=== PATIENT | female | born 1940 | race African-American/Black ===

== ENCOUNTER 2017-04-29 17:05 | Inpatient (IN) | payer OTHER, MEDICAID ==
[~2017-04-29] VITALS: Ht 167.6 cm; Wt 77.1 kg
[~2017-04-29 17:05] MED LIST: FURO-152; LINA5TAB PO; METF500T3 PO; NIFE60TA64 PO; RAMI10CA19 PO; SIMV40TA5 PO; TRIA1TAB5 PO
[2017-04-29 18:23] LABS: CLARITY URINE TURBID (CLEAR); COLOR URINE DARK YELLOW (YELLOW); GLUCOSE URINE 2+ (NEGATIVE); KETONES URINE 1+ (NEGATIVE); LEUKOCYTE ESTERASE URINE 3+ (NEGATIVE); NITRITE URINE NEGATIVE (NEGATIVE); OCCULT BLOOD URINE 2+ (NEGATIVE); PH URINE 5.5 (4.5-8.0); PROTEIN URINE 3+ (NEGATIVE); SPECIFIC GRAVITY URINE 1.024 (1.005-1.030)
[2017-04-29 18:28] LABS: BASOPHILS % 0.9 % (0.0-2.0); EOSINOPHILS % 0.3 % (0.0-5.0); HEMATOCRIT. 38.7 % (36.0-48.0); HEMOGLOBIN. 12.7 g/dL (12.0-16.0); LYMPHOCYTES % 23.9 % (20.0-50.0); MEAN CORPUSCULAR HEMOGLOBIN 25.9 pg (28.0-32.0); MEAN CORPUSCULAR VOLUME 78.7 fL (81.0-99.0); MEAN PLATELET VOLUME 8.7 fl (7.4-10.4); MONOCYTES % 9.9 % (2.0-8.0); PLATELET 298 x1000/uL (130-400); RED BLOOD CELL COUNT 4.91 mill/uL (4.2-5.4); RED CELL DISTRIBUTION WIDTH 15.4 % (11.6-14.6)
[2017-04-29 18:41] LABS: CARBON DIOXIDE 29 mEq/L (21-32); CHLORIDE 100 mEq/L (98-107)
[2017-04-29] MEDS ORDERED: LEVOFLOXACIN 500MG PREMIX 100 ML IV ONE (19:45)
[2017-04-29] MEDS ORDERED: LORAZEPAM 2MG/ML CPJ IV ONE (21:15)
[2017-04-29] MEDS ORDERED: LABETALOL HCL 20MG/4ML CARPUJECT IV PRN (21:15)
[2017-04-29] MEDS ORDERED: LABETALOL 5MG/ML SYR 20 MG/4 ML SYRINGE IV PRN (22:30)
[2017-04-30] MEDS ORDERED: ACETAMINOPHEN 325MG TABLET PO PRN
[2017-04-30] MEDS ORDERED: LORAZEPAM 0.5MG TABLET PO PRN
[2017-04-30] MEDS ORDERED: ONDANSETRON HCL 4MG/2ML VIAL IV PRN
[2017-04-30] MEDS ORDERED: CLONIDINE 0.1MG TABLET PO PRN
[2017-04-30] MEDS ORDERED: DOCUSATE SODIUM 100MG CAPSULE PO PRN
[2017-04-30] MEDS ORDERED: ENOXAPARIN 40MG/0.4ML SYR SUBCUT NR (05:06)
[2017-04-30] MEDS ORDERED: LEVOFLOXACIN 500MG PREMIX 100 ML IV NR (05:08)
[2017-04-30] MEDS ORDERED: MVI, ADULT NO.1 10 ML, FOLIC ACID 1 MG, THIAMINE HCL 100 MG in SODIUM CHLORIDE 0.9% 1,0... IV SCH ×4 (05:30)
[2017-04-30] MEDS: TRIAMTERENE/HYDROCHLOROTHIAZID 75/50MG TABLET PO SCH (12:08)
[2017-04-30] MEDS: LOSARTAN POTASSIUM 100 MG TABLET PO SCH (12:08)
[2017-04-30] MEDS: NIFEDIPINE XL 60MG TAB PO SCH (12:09)
[2017-04-30] MEDS: LINAGLIPTIN 5MG TABLET PO SCH (12:09)
[2017-04-30] MEDS ORDERED: POTASSIUM CHLORIDE 20MEQ TABLET SR PO NR (14:15)
[2017-04-30 17:25] VITALS: BP 130/78
[2017-04-30 17:36] VITALS: BP 130/78
[2017-04-30] MEDS ORDERED: DEXTROSE 50% WATER 50ML SYRINGE IV PRN (18:00)
[2017-04-30 20:00] VITALS: BP 138/81
[2017-04-30] MEDS: ATORVASTATIN CALCIUM 40MG TABLET PO SCH (21:00)
[2017-04-30] MEDS: INSULIN LISPRO 100 UNITS/ML SUBCUT SCH (21:00)
[2017-04-30] MEDS: BLOOD SUGAR DIAGNOSTIC STRIP TEST SCH (21:00)
[2017-05-01] VITALS: BP 166/86
[2017-05-01 04:00] VITALS: BP 102/60
[2017-05-01] MEDS ORDERED: LEVOFLOXACIN 500MG PREMIX 100 ML IV SCH ×2 (05:00→05:08)
[2017-05-01] MEDS: BLOOD SUGAR DIAGNOSTIC STRIP TEST SCH ×4 (06:14→21:30)
[2017-05-01] MEDS: INSULIN LISPRO 100 UNITS/ML SUBCUT SCH ×4 (06:18→21:30)
[2017-05-01 08:00] VITALS: BP 135/67
[2017-05-01] MEDS ORDERED: POTASSIUM CHLORIDE 20MEQ TABLET SR PO SCH (09:00)
[2017-05-01] MEDS: ENOXAPARIN 40MG/0.4ML SYR SUBCUT SCH ×2 (09:00→09:51)
[2017-05-01] MEDS ORDERED: ENOXAPARIN 40MG/0.4ML SYR SUBCUT SCH (09:00)
[2017-05-01] MEDS: POTASSIUM CHLORIDE 20MEQ TABLET SR PO SCH (09:07)
[2017-05-01] MEDS: TRIAMTERENE/HYDROCHLOROTHIAZID 75/50MG TABLET PO SCH (09:08)
[2017-05-01] MEDS: LOSARTAN POTASSIUM 100 MG TABLET PO SCH (09:08)
[2017-05-01] MEDS: LINAGLIPTIN 5MG TABLET PO SCH (09:08)
[2017-05-01] MEDS: NIFEDIPINE XL 60MG TAB PO SCH (09:08)
[2017-05-01 12:00] VITALS: BP 139/76
[2017-05-01 16:00] VITALS: BP 134/75
[2017-05-01 20:00] VITALS: BP 137/71
[2017-05-01] MEDS: ATORVASTATIN CALCIUM 40MG TABLET PO SCH (21:30)
[2017-05-02] VITALS: BP 121/73
[2017-05-02 04:00] VITALS: BP 139/72
[2017-05-02] MEDS: BLOOD SUGAR DIAGNOSTIC STRIP TEST SCH ×4 (07:07→21:45)
[2017-05-02] MEDS: INSULIN LISPRO 100 UNITS/ML SUBCUT SCH ×4 (07:07→21:00)
[2017-05-02] MEDS: NIFEDIPINE XL 60MG TAB PO SCH (09:00)
[2017-05-02] MEDS ORDERED: LEVOFLOXACIN 500MG PREMIX 100 ML IV SCH (09:00)
[2017-05-02] MEDS: LINAGLIPTIN 5MG TABLET PO SCH (09:00)
[2017-05-02] MEDS: POTASSIUM CHLORIDE 20MEQ TABLET SR PO SCH (09:00)
[2017-05-02] MEDS: TRIAMTERENE/HYDROCHLOROTHIAZID 75/50MG TABLET PO SCH (09:00)
[2017-05-02] MEDS: LOSARTAN POTASSIUM 100 MG TABLET PO SCH (09:00)
[2017-05-02] MEDS: ENOXAPARIN 40MG/0.4ML SYR SUBCUT SCH (09:00)
[2017-05-02 09:31] VITALS: BP 129/76
[2017-05-02 12:08] VITALS: BP 112/79
[2017-05-02] MEDS: LEVOFLOXACIN 500MG TABLET PO SCH (12:30)
[2017-05-02 15:47] VITALS: BP 119/66
[2017-05-02 20:00] VITALS: BP 125/68
[2017-05-02] MEDS: ATORVASTATIN CALCIUM 40MG TABLET PO SCH (21:00)
[2017-05-02] MEDS: MIRTAZAPINE 15MG TABLET PO SCH (21:00)
[2017-05-03] VITALS: BP 154/82
[2017-05-03] MEDS: INSULIN LISPRO 100 UNITS/ML SUBCUT SCH ×3 (06:31→17:40)
[2017-05-03] MEDS: BLOOD SUGAR DIAGNOSTIC STRIP TEST SCH ×4 (06:31→21:00)
[2017-05-03 08:00] VITALS: BP 108/65
[2017-05-03] MEDS: NIFEDIPINE XL 60MG TAB PO SCH (09:00)
[2017-05-03] MEDS: LOSARTAN POTASSIUM 100 MG TABLET PO SCH (09:00)
[2017-05-03] MEDS: LINAGLIPTIN 5MG TABLET PO SCH (09:00)
[2017-05-03] MEDS: TRIAMTERENE/HYDROCHLOROTHIAZID 75/50MG TABLET PO SCH (09:00)
[2017-05-03] MEDS: POTASSIUM CHLORIDE 20MEQ TABLET SR PO SCH (09:00)
[2017-05-03] MEDS: ENOXAPARIN 40MG/0.4ML SYR SUBCUT SCH (09:00)
[2017-05-03 12:00] VITALS: BP 110/64
[2017-05-03] MEDS ORDERED: LEVOFLOXACIN 500MG TABLET PO SCH (12:00)
[2017-05-03 16:00] VITALS: BP 114/68
[2017-05-03 20:00] VITALS: BP 129/91
[2017-05-03] MEDS: MIRTAZAPINE 15MG TABLET PO SCH (22:46)
[2017-05-03] MEDS: ATORVASTATIN CALCIUM 40MG TABLET PO SCH (22:46)
[2017-05-04 08:00] VITALS: BP 133/68
[2017-05-04] MEDS: ENOXAPARIN 40MG/0.4ML SYR SUBCUT SCH (09:16)
[2017-05-04] MEDS: TRIAMTERENE/HYDROCHLOROTHIAZID 75/50MG TABLET PO SCH (09:17)
[2017-05-04] MEDS: LINAGLIPTIN 5MG TABLET PO SCH (09:18)
[2017-05-04] MEDS: LOSARTAN POTASSIUM 100 MG TABLET PO SCH (09:18)
[2017-05-04] MEDS: POTASSIUM CHLORIDE 20MEQ TABLET SR PO SCH (09:18)
[2017-05-04] MEDS: NIFEDIPINE XL 60MG TAB PO SCH (09:18)
[2017-05-04 12:00] VITALS: BP 128/69
[2017-05-04] MEDS: BLOOD SUGAR DIAGNOSTIC STRIP TEST SCH ×2 (12:10→21:00)
[2017-05-04] MEDS: LEVOFLOXACIN 500MG TABLET PO SCH (12:30)
[2017-05-04] MEDS: INSULIN LISPRO 100 UNITS/ML SUBCUT SCH ×2 (12:40→21:00)
[2017-05-04 16:00] VITALS: BP 116/73
[2017-05-04] MEDS: ATORVASTATIN CALCIUM 40MG TABLET PO SCH (21:00)
[2017-05-04] MEDS: MIRTAZAPINE 15MG TABLET PO SCH (21:00)
[2017-05-05 04:00] VITALS: BP 144/80
[2017-05-05] MEDS: INSULIN LISPRO 100 UNITS/ML SUBCUT SCH ×4 (06:07→21:00)
[2017-05-05] MEDS: BLOOD SUGAR DIAGNOSTIC STRIP TEST SCH ×5 (06:07→21:45)
[2017-05-05] MEDS: POTASSIUM CHLORIDE 20MEQ TABLET SR PO SCH (09:00)
[2017-05-05] MEDS: LINAGLIPTIN 5MG TABLET PO SCH (09:00)
[2017-05-05] MEDS: LOSARTAN POTASSIUM 100 MG TABLET PO SCH (09:00)
[2017-05-05] MEDS: ENOXAPARIN 40MG/0.4ML SYR SUBCUT SCH (09:00)
[2017-05-05] MEDS: TRIAMTERENE/HYDROCHLOROTHIAZID 75/50MG TABLET PO SCH (09:00)
[2017-05-05] MEDS: NIFEDIPINE XL 60MG TAB PO SCH (09:00)
[2017-05-05 09:06] VITALS: BP 133/67
[2017-05-05] MEDS: ATORVASTATIN CALCIUM 40MG TABLET PO SCH (21:00)
[2017-05-05] MEDS: MIRTAZAPINE 15MG TABLET PO SCH (21:00)
[2017-05-06 08:00] VITALS: BP 102/77
[2017-05-06] MEDS: NIFEDIPINE XL 60MG TAB PO SCH (08:11)
[2017-05-06] MEDS: LOSARTAN POTASSIUM 100 MG TABLET PO SCH (08:11)
[2017-05-06] MEDS: INSULIN LISPRO 100 UNITS/ML SUBCUT SCH ×4 (08:14→21:00)
[2017-05-06] MEDS: LINAGLIPTIN 5MG TABLET PO SCH (08:38)
[2017-05-06] MEDS: ENOXAPARIN 40MG/0.4ML SYR SUBCUT SCH (08:38)
[2017-05-06] MEDS: POTASSIUM CHLORIDE 20MEQ TABLET SR PO SCH (08:38)
[2017-05-06] MEDS: TRIAMTERENE/HYDROCHLOROTHIAZID 75/50MG TABLET PO SCH (08:38)
[2017-05-06] MEDS: BLOOD SUGAR DIAGNOSTIC STRIP TEST SCH ×3 (11:37→21:50)
[2017-05-06 12:00] VITALS: BP 98/50
[2017-05-06] MEDS: LEVOFLOXACIN 500MG TABLET PO SCH (12:57)
[2017-05-06 16:00] VITALS: BP 151/86
[2017-05-06 20:00] VITALS: BP 103/60
[2017-05-06] MEDS: MIRTAZAPINE 15MG TABLET PO SCH (21:50)
[2017-05-06] MEDS: ATORVASTATIN CALCIUM 40MG TABLET PO SCH (21:50)
[2017-05-07 04:00] VITALS: BP 117/71
[2017-05-07] MEDS: BLOOD SUGAR DIAGNOSTIC STRIP TEST SCH ×4 (06:41→20:34)
[2017-05-07] MEDS: INSULIN LISPRO 100 UNITS/ML SUBCUT SCH ×4 (06:41→20:33)
[2017-05-07 08:00] VITALS: BP 139/76
[2017-05-07] MEDS: POTASSIUM CHLORIDE 20MEQ TABLET SR PO SCH (08:25)
[2017-05-07] MEDS: LOSARTAN POTASSIUM 100 MG TABLET PO SCH (08:25)
[2017-05-07] MEDS: TRIAMTERENE/HYDROCHLOROTHIAZID 75/50MG TABLET PO SCH (08:26)
[2017-05-07] MEDS: NIFEDIPINE XL 60MG TAB PO SCH (08:26)
[2017-05-07] MEDS: ENOXAPARIN 40MG/0.4ML SYR SUBCUT SCH (08:26)
[2017-05-07] MEDS: LINAGLIPTIN 5MG TABLET PO SCH (08:26)
[2017-05-07 12:00] VITALS: BP 136/76
[2017-05-07 17:48] VITALS: BP 136/76
[2017-05-07 19:53] VITALS: BP 145/74
[2017-05-07] MEDS: MIRTAZAPINE 15MG TABLET PO SCH (20:34)
[2017-05-07] MEDS: ATORVASTATIN CALCIUM 40MG TABLET PO SCH (20:34)
== END 2017-05-07 23:24 | disposition home or self-care (01) | DRG 689 ==
LOC: ER 17:57 → ENRESERV 04-30 16:25 → ER 04-30 16:57 → 8WST 04-30 17:35
PROVIDERS: ADMIT Internal Medicine; ATTEND Internal Medicine
DX: N39.0 Urinary tract infection, site not specified (principal); G93.41 Metabolic encephalopathy; I67.82 Cerebral ischemia; E44.1 Mild protein-calorie malnutrition; E87.6 Hypokalemia; F03.90 Unspecified dementia, unspecified severity, without behavioral disturbance, psychotic disturbance, mood disturbance, and anxiety; E11.319 Type 2 diabetes mellitus with unspecified diabetic retinopathy without macular edema; I10 Essential (primary) hypertension; E78.5 Hyperlipidemia, unspecified; F22 Delusional disorders; F41.9 Anxiety disorder, unspecified; Z88.0 Allergy status to penicillin; Z79.84 Long term (current) use of oral hypoglycemic drugs; Z79.899 Other long term (current) drug therapy; Z91.14 Patient's other noncompliance with medication regimen; Z90.710 Acquired absence of both cervix and uterus; Z68.27 Body mass index [BMI] 27.0-27.9, adult
CPT/HCPCS: 36415; 74176; 80048; 81001; 82040; 82962; 85025; 87040; 87086; 87186; 96365; 96366; 96368; 96372; 96375; 97162; 97166; 99285; A6261; J1650; J1815; J1956; J2060; J3411; J3490; J7030; J7050

== ENCOUNTER 2017-05-11 16:33 | Emergency (ER) | payer OTHER, MEDICAID ==
[~2017-05-11] VITALS: Ht 167.6 cm; Wt 87.0 kg
[~2017-05-11 16:33] MED LIST changes: -FURO-152
[2017-05-11] MEDS ORDERED: CLONIDINE 0.1MG TABLET PO ONE (17:15)
[2017-05-11] MEDS ORDERED: LORAZEPAM 1MG TABLET PO ONE (17:15)
[2017-05-11 17:55] LABS: BASOPHILS % 1.2 % (0.0-2.0); EOSINOPHILS % 0.6 % (0.0-5.0); HEMOGLOBIN. 12.2 g/dL (12.0-16.0); LYMPHOCYTES % 31.5 % (20.0-50.0); MEAN CORPUSCULAR HEMOGLOBIN 26.1 pg (28.0-32.0); MEAN PLATELET VOLUME 9.1 fl (7.4-10.4); MONOCYTES % 8.1 % (2.0-8.0); NEUTROPHILS % 58.6 % (40.0-76.0); PLATELET 228 x1000/uL (130-400); RED BLOOD CELL COUNT 4.69 mill/uL (4.2-5.4); RED CELL DISTRIBUTION WIDTH 15.9 % (11.6-14.6)
[2017-05-11 17:56] LABS: D-DIMER 3.45 mg/L FEU (<0.50); PROTHROMBIN TIME 10.6 sec
[2017-05-11 17:57] LABS: CARBON DIOXIDE 27 mEq/L (21-32); CHLORIDE 102 mEq/L (98-107)
[2017-05-11 18:05] LABS: CREATINE KINASE 97 IU/L (26-192); ETHANOL BLOOD < 10 mg/dL; TROPONIN I 0.18 ng/mL (0.00-0.04)
[2017-05-11 18:26] LABS: CLARITY URINE CLEAR (CLEAR); COLOR URINE YELLOW (YELLOW); GLUCOSE URINE 2+ (NEGATIVE); KETONES URINE TRACE (NEGATIVE); LEUKOCYTE ESTERASE URINE NEGATIVE (NEGATIVE); NITRITE URINE NEGATIVE (NEGATIVE); OCCULT BLOOD URINE NEGATIVE (NEGATIVE); PROTEIN URINE 1+ (NEGATIVE); SPECIFIC GRAVITY URINE 1.014 (1.005-1.030); UROBILINOGEN URINE 0.2 E.U./dL (0.2-1.0)
[2017-05-11 18:39] LABS: *AMPHETAMINES SCREEN URINE NEGATIVE (NEGATIVE); *BARBITURATES SCREEN URINE NEGATIVE (NEGATIVE); *BENZODIAZEPINES SCREEN URINE NEGATIVE (NEGATIVE); *COCAINE SCREEN URINE NEGATIVE (NEGATIVE); CANNABINOID URINE SCREEN NEGATIVE (NEGATIVE); METHADONE URINE SCREEN NEGATIVE (NEGATIVE); OPIATES URINE SCREEN NEGATIVE (NEGATIVE); PHENCYCLIDINE URINE SCREEN NEGATIVE (NEGATIVE)
[2017-05-12] MEDS ORDERED: ZOLPIDEM TARTRATE 5MG TABLET PO PRN (13:00)
[2017-05-12] MEDS: METFORMIN HCL 500MG TABLET PO SCH (17:00)
[2017-05-12] MEDS: TRIAMTERENE/HYDROCHLOROTHIAZIDE 37.5/25MG CAPSULE PO SCH (17:36)
[2017-05-12] MEDS: NIFEDIPINE XL 60MG TAB PO SCH (17:37)
[2017-05-12] MEDS ORDERED: CLONIDINE 0.2MG TABLET PO ONE (22:00)
[2017-05-12] MEDS ORDERED: LORAZEPAM 1MG TABLET PO ONE (22:00)
[2017-05-13] MEDS: TRIAMTERENE/HYDROCHLOROTHIAZIDE 37.5/25MG CAPSULE PO SCH (09:51)
[2017-05-13] MEDS: NIFEDIPINE XL 60MG TAB PO SCH (09:51)
[2017-05-13] MEDS: METFORMIN HCL 500MG TABLET PO SCH ×2 (09:51→17:00)
[2017-05-13] MEDS ORDERED: LORAZEPAM 2MG/ML CPJ IM ONE (14:30)
[2017-05-13 16:31] VITALS: BP 138/67
== END 2017-05-13 22:07 | disposition home or self-care (01) ==
LOC: ER 17:11
DX: I10 Essential (primary) hypertension (principal); F60.3 Borderline personality disorder; R78.89 Finding of other specified substances, not normally found in blood; I51.7 Cardiomegaly; E11.9 Type 2 diabetes mellitus without complications; F03.90 Unspecified dementia, unspecified severity, without behavioral disturbance, psychotic disturbance, mood disturbance, and anxiety; Z87.440 Personal history of urinary (tract) infections; Z00.01 Encounter for general adult medical examination with abnormal findings; Z88.0 Allergy status to penicillin
CPT/HCPCS: 36415; 71010; 80053; 80305; 81001; 82550; 82962; 83880; 84443; 84484; 85025; 85379; 85610; 93005; 96372; 99285; G0482; J2060

== ENCOUNTER 2017-05-16 18:33 | Inpatient (IN) | payer OTHER, MEDICAID ==
[~2017-05-16] VITALS: Ht 162.6 cm; Wt 89.8 kg
[2017-05-16 19:52] LABS: BASOPHILS % 1.1 % (0.0-2.0); EOSINOPHILS % 0.3 % (0.0-5.0); HEMATOCRIT. 38.3 % (36.0-48.0); HEMOGLOBIN. 12.8 g/dL (12.0-16.0); LYMPHOCYTES % 33.1 % (20.0-50.0); MEAN CORPUSCULAR HEMOGLOBIN 26.2 pg (28.0-32.0); MEAN CORPUSCULAR VOLUME 78.7 fL (81.0-99.0); MONOCYTES % 9.3 % (2.0-8.0); NEUTROPHILS % 56.2 % (40.0-76.0); PLATELET 200 x1000/uL (130-400); RED BLOOD CELL COUNT 4.87 mill/uL (4.2-5.4); RED CELL DISTRIBUTION WIDTH 15.9 % (11.6-14.6)
[2017-05-16] MEDS ORDERED: SODIUM CHLORIDE 0.9% 1,000 ML IV ONE (19:52)
[2017-05-16 19:56] LABS: PROTHROMBIN TIME 10.7 sec
[2017-05-16 20:00] LABS: AMMONIA 20 uMol/L (<32)
[2017-05-16] MEDS ORDERED: INSULIN REGULAR (HUMULIN R) 300UNITS/3ML IV ONE (20:00)
[2017-05-16 20:07] LABS: CARBON DIOXIDE 28 mEq/L (21-32); CHLORIDE 101 mEq/L (98-107); CREATINE KINASE 96 IU/L (26-192); ETHANOL BLOOD < 10 mg/dL; TROPONIN I 0.18 ng/mL (0.00-0.04)
[2017-05-16] MEDS ORDERED: NITROGLYCERIN OINT 1GM/INCH UDPKT TD NR (20:15)
[2017-05-16] MEDS ORDERED: ASPIRIN 81MG TABLET PO NR (20:15)
[2017-05-16] MEDS ORDERED: POTASSIUM BICARB/CIT ACID 25 MEQ TABLET.EFF PO ONE (21:00)
[2017-05-16] MEDS ORDERED: LABETALOL HCL 20MG/4ML CARPUJECT IV ONE (21:00)
[2017-05-16 22:12] LABS: CLARITY URINE CLEAR (CLEAR); COLOR URINE YELLOW (YELLOW); GLUCOSE URINE 2+ (NEGATIVE); KETONES URINE NEGATIVE (NEGATIVE); LEUKOCYTE ESTERASE URINE NEGATIVE (NEGATIVE); NITRITE URINE NEGATIVE (NEGATIVE); OCCULT BLOOD URINE NEGATIVE (NEGATIVE); PH URINE 7.5 (4.5-8.0); PROTEIN URINE TRACE (NEGATIVE); SPECIFIC GRAVITY URINE 1.011 (1.005-1.030); UROBILINOGEN URINE 0.2 E.U./dL (0.2-1.0)
[2017-05-16] MEDS ORDERED: CLONIDINE 0.1MG TABLET PO PRN (22:30)
[2017-05-16] MEDS ORDERED: DEXTROSE 50% WATER 50ML SYRINGE IV PRN (22:30)
[2017-05-16] MEDS ORDERED: ACETAMINOPHEN 325MG TABLET PO PRN (22:30)
[2017-05-16] MEDS ORDERED: TRAMADOL 50MG TABLET PO PRN (22:30)
[2017-05-16] MEDS ORDERED: DOCUSATE SODIUM 100MG CAPSULE PO PRN (22:30)
[2017-05-16] MEDS ORDERED: MAGNESIUM/ALUMINUM HYDROXIDE/SIMETHICONE 30ML UDC PO PRN (22:30)
[2017-05-16] MEDS ORDERED: ZOLPIDEM TARTRATE 5MG TABLET PO PRN (22:30)
[2017-05-16] MEDS ORDERED: GUAIFENESIN 200MG/10ML SUGAR FREE UDC PO PRN (22:30)
[2017-05-16] MEDS ORDERED: ENOXAPARIN 40MG/0.4ML SYR SUBCUT SCH (22:30)
[2017-05-16] MEDS ORDERED: DIPHENHYDRAMINE 50MG/ML VIAL IV PRN (22:30)
[2017-05-16] MEDS ORDERED: MORPHINE SULFATE 2 MG/ML CPJ (NOT FOR IM USE) IV PRN (22:30)
[2017-05-16] MEDS ORDERED: NITROGLYCERIN 0.4MG TABLET SL SL PRN (22:30)
[2017-05-16] MEDS ORDERED: LORAZEPAM 2MG/ML CPJ IV PRN (22:30)
[2017-05-16] MEDS ORDERED: IPRATROPIUM/ALBUTEROL 0.5-3(2.5)MG/3ML NEB INH PRN (22:30)
[2017-05-16] MEDS ORDERED: ONDANSETRON HCL 4MG/2ML VIAL IV PRN (22:30)
[2017-05-16] MEDS ORDERED: NA PHOS,M-B/NA PHOS,DI-BA ENEMA 118ML PR PRN (22:30)
[2017-05-16] MEDS ORDERED: LABETALOL 5MG/ML SYR 20 MG/4 ML SYRINGE IV NR (23:00)
[2017-05-17] MEDS: ENOXAPARIN 100MG/ML SYR SUBCUT SCH ×4 (00:28→21:00)
[2017-05-17 00:38] VITALS: BP 182/77
[2017-05-17] MEDS ORDERED: KCL 20MEQ/100ML PREMIX 100 ML IV NR (02:00)
[2017-05-17 04:00] VITALS: BP 174/78
[2017-05-17] MEDS: BLOOD SUGAR DIAGNOSTIC STRIP TEST SCH ×4 (06:29→20:40)
[2017-05-17 07:29] LABS: CREATINE KINASE MB FRACTION 1.7 ng/mL (0.5-3.6); TROPONIN I 0.23 ng/mL (0.00-0.04)
[2017-05-17 08:00] VITALS: BP 154/64
[2017-05-17] MEDS: LISINOPRIL 20MG TABLET PO SCH ×2 (08:35→20:51)
[2017-05-17] MEDS: ASPIRIN 325MG EC TABLET PO SCH (08:36)
[2017-05-17] MEDS: INSULIN LISPRO 100 UNITS/ML SUBCUT SCH ×5 (08:37→20:53)
[2017-05-17] MEDS: PANTOPRAZOLE SODIUM 40 MG/VIAL IV SCH (08:38)
[2017-05-17] MEDS ORDERED: METOPROLOL TARTRATE 25MG TABLET PO SCH (09:00)
[2017-05-17 12:00] VITALS: BP 141/62
[2017-05-17] MEDS: LOSARTAN POTASSIUM 25 MG TABLET PO SCH ×2 (14:13→20:39)
[2017-05-17 16:00] VITALS: BP 129/42
[2017-05-17 16:44] LABS: CREATINE KINASE MB FRACTION 1.5 ng/mL (0.5-3.6); TROPONIN I 0.21 ng/mL (0.00-0.04)
[2017-05-17 20:00] VITALS: BP 121/64
[2017-05-17] MEDS: ATORVASTATIN CALCIUM 40MG TABLET PO SCH (20:51)
[2017-05-18] VITALS: BP 128/75
[2017-05-18 04:00] VITALS: BP 139/69
[2017-05-18 05:49] LABS: EOSINOPHILS % 2.1 % (0.0-5.0); HEMOGLOBIN. 11.7 g/dL (12.0-16.0); MEAN CORPUSCULAR HEMOGLOBIN 26.8 pg (28.0-32.0); MEAN CORPUSCULAR VOLUME 78.7 fL (81.0-99.0); MEAN PLATELET VOLUME 9.2 fl (7.4-10.4); MONOCYTES % 10.3 % (2.0-8.0); NEUTROPHILS % 36.6 % (40.0-76.0); PLATELET 180 x1000/uL (130-400); RED BLOOD CELL COUNT 4.37 mill/uL (4.2-5.4); RED CELL DISTRIBUTION WIDTH 16.1 % (11.6-14.6)
[2017-05-18] MEDS: BLOOD SUGAR DIAGNOSTIC STRIP TEST SCH ×5 (06:37→21:00)
[2017-05-18 06:52] LABS: HEMATOCRIT. 34.4 % (36.0-48.0)
[2017-05-18 07:05] LABS: CARBON DIOXIDE 28 mEq/L (21-32); CHLORIDE 100 mEq/L (98-107)
[2017-05-18 07:13] LABS: TROPONIN I 0.18 ng/mL (0.00-0.04)
[2017-05-18] MEDS: INSULIN LISPRO 100 UNITS/ML SUBCUT SCH ×5 (07:50→21:00)
[2017-05-18 08:08] VITALS: BP 103/48
[2017-05-18] MEDS: ASPIRIN 325MG EC TABLET PO SCH (08:42)
[2017-05-18] MEDS: LOSARTAN POTASSIUM 25 MG TABLET PO SCH ×2 (08:50→21:00)
[2017-05-18] MEDS: LISINOPRIL 20MG TABLET PO SCH ×2 (08:50→21:00)
[2017-05-18] MEDS: PANTOPRAZOLE SODIUM 40 MG/VIAL IV SCH (08:50)
[2017-05-18] MEDS: ENOXAPARIN 100MG/ML SYR SUBCUT SCH ×2 (08:51→21:00)
[2017-05-18] MEDS: INSULIN DETEMIR UD 100 UNITS/ML SYR SUBCUT SCH (10:00)
[2017-05-18 12:00] VITALS: BP 125/60
[2017-05-18 19:28] VITALS: BP 147/66
[2017-05-18] MEDS: ATORVASTATIN CALCIUM 40MG TABLET PO SCH (21:00)
[2017-05-18 23:59] VITALS: BP 147/68
[2017-05-19 06:53] VITALS: BP 148/75
[2017-05-19] MEDS: BLOOD SUGAR DIAGNOSTIC STRIP TEST SCH ×4 (07:20→20:19)
[2017-05-19] MEDS: INSULIN LISPRO 100 UNITS/ML SUBCUT SCH ×4 (07:50→21:00)
[2017-05-19 08:00] VITALS: BP 169/65
[2017-05-19] MEDS: PANTOPRAZOLE SODIUM 40 MG/VIAL IV SCH (08:44)
[2017-05-19] MEDS: LISINOPRIL 20MG TABLET PO SCH ×2 (08:44→21:00)
[2017-05-19] MEDS: LOSARTAN POTASSIUM 25 MG TABLET PO SCH ×2 (08:44→21:00)
[2017-05-19] MEDS: ASPIRIN 325MG EC TABLET PO SCH (08:44)
[2017-05-19] MEDS: ENOXAPARIN 100MG/ML SYR SUBCUT SCH ×2 (08:45→21:00)
[2017-05-19] MEDS: INSULIN DETEMIR UD 100 UNITS/ML SYR SUBCUT SCH (10:00)
[2017-05-19 12:00] VITALS: BP 135/61
[2017-05-19 16:00] VITALS: BP 109/59
[2017-05-19 16:43] VITALS: BP 109/59
[2017-05-19 20:00] VITALS: BP 177/107
[2017-05-19] MEDS: ATORVASTATIN CALCIUM 40MG TABLET PO SCH (21:00)
[2017-05-20] VITALS: BP 159/77
== END 2017-05-20 01:30 | disposition home or self-care (01) | DRG 884 ==
LOC: ER 18:33 → 6WST 22:17 → ENRESERV 22:27 → EDBEDREQ 23:05 → 6WST 05-18 09:06
PROVIDERS: ADMIT Internal Medicine; ATTEND Internal Medicine
DX: F03.90 Unspecified dementia, unspecified severity, without behavioral disturbance, psychotic disturbance, mood disturbance, and anxiety (principal); G93.40 Encephalopathy, unspecified; E44.0 Moderate protein-calorie malnutrition; Z68.34 Body mass index [BMI] 34.0-34.9, adult; E11.65 Type 2 diabetes mellitus with hyperglycemia; E78.00 Pure hypercholesterolemia, unspecified; E83.42 Hypomagnesemia; E87.6 Hypokalemia; F20.9 Schizophrenia, unspecified; I11.0 Hypertensive heart disease with heart failure; I16.0 Hypertensive urgency; I50.9 Heart failure, unspecified; Z79.899 Other long term (current) drug therapy; Z82.49 Family history of ischemic heart disease and other diseases of the circulatory system; Z87.440 Personal history of urinary (tract) infections; Z88.0 Allergy status to penicillin
CPT/HCPCS: 36415; 70450; 80053; 80061; 80307; 80329; 81001; 82010; 82140; 82550; 82553; 82962; 83036; 83690; 83735; 83880; 84443; 84484; 85025; 85610; 87086; 93005; 93970; 96365; 96367; 96372; 96376; 99291; C9113; G0482; J1650; J1815; J2060; J3480; J3490; J7040; J7620

== ENCOUNTER 2017-05-21 21:24 | Emergency (ER) | payer OTHER, MEDICAID ==
[~2017-05-21] VITALS: Ht 167.6 cm; Wt 100.0 kg
[2017-05-21 23:09] LABS: CLARITY URINE CLEAR (CLEAR); COLOR URINE YELLOW (YELLOW); GLUCOSE URINE 2+ (NEGATIVE); KETONES URINE NEGATIVE (NEGATIVE); LEUKOCYTE ESTERASE URINE NEGATIVE (NEGATIVE); NITRITE URINE NEGATIVE (NEGATIVE); OCCULT BLOOD URINE NEGATIVE (NEGATIVE); PROTEIN URINE TRACE (NEGATIVE); SPECIFIC GRAVITY URINE 1.011 (1.005-1.030); UROBILINOGEN URINE 0.2 E.U./dL (0.2-1.0)
[2017-05-21 23:19] LABS: *AMPHETAMINES SCREEN URINE NEGATIVE (NEGATIVE); *BARBITURATES SCREEN URINE NEGATIVE (NEGATIVE); *BENZODIAZEPINES SCREEN URINE NEGATIVE (NEGATIVE); *COCAINE SCREEN URINE NEGATIVE (NEGATIVE); CANNABINOID URINE SCREEN NEGATIVE (NEGATIVE); METHADONE URINE SCREEN NEGATIVE (NEGATIVE); OPIATES URINE SCREEN NEGATIVE (NEGATIVE); PHENCYCLIDINE URINE SCREEN NEGATIVE (NEGATIVE)
[2017-05-21 23:20] LABS: BASOPHILS % 1.1 % (0.0-2.0); EOSINOPHILS % 1.8 % (0.0-5.0); HEMATOCRIT. 39.9 % (36.0-48.0); HEMOGLOBIN. 13.2 g/dL (12.0-16.0); LYMPHOCYTES % 44.9 % (20.0-50.0); MEAN CORPUSCULAR HEMOGLOBIN 26.4 pg (28.0-32.0); MEAN CORPUSCULAR VOLUME 79.7 fL (81.0-99.0); MEAN PLATELET VOLUME 8.8 fl (7.4-10.4); MONOCYTES % 8.6 % (2.0-8.0); NEUTROPHILS % 43.6 % (40.0-76.0); PLATELET 192 x1000/uL (130-400); RED BLOOD CELL COUNT 5.01 mill/uL (4.2-5.4); RED CELL DISTRIBUTION WIDTH 16.1 % (11.6-14.6)
[2017-05-21 23:24] LABS: CHLORIDE 101 mEq/L (98-107)
[2017-05-21 23:26] LABS: PROTHROMBIN TIME 10.2 sec
[2017-05-21 23:27] LABS: CARBON DIOXIDE 27 mEq/L (21-32)
[2017-05-21 23:28] LABS: ETHANOL BLOOD < 10 mg/dL
[2017-05-22] MEDS ORDERED: LINAGLIPTIN 5MG TABLET PO SCH (01:00)
[2017-05-22] MEDS ORDERED: NIFEDIPINE XL 60MG TAB PO NR (01:00)
[2017-05-22] MEDS ORDERED: METFORMIN HCL 500MG SR TABLET 24HR PO NR (01:00)
[2017-05-22 20:40] VITALS: BP 148/76
== END 2017-05-22 21:01 | disposition home or self-care (01) ==
LOC: ER 21:39
DX: R62.7 Adult failure to thrive (principal); I10 Essential (primary) hypertension; E11.9 Type 2 diabetes mellitus without complications; Z88.0 Allergy status to penicillin
CPT/HCPCS: 36415; 80053; 80305; 81001; 85025; 85610; 93005; 99285; G0482

== ENCOUNTER 2017-10-11 07:12 | Emergency (ER) | payer OTHER, MEDICAID ==
[~2017-10-11] VITALS: Ht 165.1 cm; Wt 80.0 kg
[2017-10-11] MEDS ORDERED: TETRACAINE 0.5% OPHTH DROPS 4ML OP ONE (07:45)
[2017-10-11] MEDS ORDERED: FLUORESCEIN SODIUM 1MG/STRIP OP ONE (07:45)
[2017-10-11] MEDS ORDERED: HYDRALAZINE HCL 50MG TABLET PO ONE (07:45)
[2017-10-11] MEDS ORDERED: ACETAMINOPHEN 325MG TABLET PO ONE (08:00)
[2017-10-11 10:30] VITALS: BP 167/91
== END 2017-10-11 12:35 | disposition home or self-care (01) ==
LOC: ER 07:18
DX: H57.11 Ocular pain, right eye (principal); I10 Essential (primary) hypertension; F03.90 Unspecified dementia, unspecified severity, without behavioral disturbance, psychotic disturbance, mood disturbance, and anxiety; Z88.0 Allergy status to penicillin
CPT/HCPCS: 99284

== ENCOUNTER 2018-10-30 07:27 | Inpatient (IN) | payer MEDICARE, MEDICAID ==
[~2018-10-30] VITALS: Ht 162.6 cm; Wt 91.2 kg
[2018-10-30 08:38] LABS: BASOPHILS % 0.6 % (0.0-2.0); EOSINOPHILS % 0.1 % (0.0-5.0); HEMATOCRIT. 40.5 % (36.0-48.0); HEMOGLOBIN. 13.5 g/dL (12.0-16.0); LYMPHOCYTES % 17.6 % (20.0-50.0); MEAN CORPUSCULAR HEMOGLOBIN 27.9 pg (28.0-32.0); MEAN CORPUSCULAR VOLUME 83.4 fL (81.0-99.0); MEAN PLATELET VOLUME 8.4 fl (7.4-10.4); MONOCYTES % 5.1 % (2.0-8.0); NEUTROPHILS % 76.6 % (40.0-76.0); PLATELET 251 x1000/uL (130-400); RED BLOOD CELL COUNT 4.85 mill/uL (4.2-5.4); RED CELL DISTRIBUTION WIDTH 16.5 % (11.6-14.6)
[2018-10-30 08:45] LABS: CHLORIDE 102 mEq/L (98-107)
[2018-10-30 10:45] LABS: CLARITY URINE CLEAR (CLEAR); COLOR URINE YELLOW (YELLOW); KETONES URINE TRACE (NEGATIVE); LEUKOCYTE ESTERASE URINE 2+ (NEGATIVE); NITRITE URINE NEGATIVE (NEGATIVE); OCCULT BLOOD URINE NEGATIVE (NEGATIVE); PH URINE 5.5 (4.5-8.0); PROTEIN URINE 2+ (NEGATIVE); SPECIFIC GRAVITY URINE 1.023 (1.005-1.030)
[2018-10-30] MEDS ORDERED: ASPIRIN 81MG TABLET PO ONE (11:30)
[2018-10-30] MEDS ORDERED: ACETAMINOPHEN 325MG TABLET PO PRN (11:45)
[2018-10-30 20:00] VITALS: BP 138/65
[2018-10-30] MEDS ORDERED: DEXTROSE 50% WATER 50ML SYRINGE IV PRN (20:45)
[2018-10-30] MEDS: INSULIN LISPRO 100 UNITS/ML SUBCUT SCH (21:00)
[2018-10-30] MEDS: BLOOD SUGAR DIAGNOSTIC STRIP TEST SCH (21:12)
[2018-10-30] MEDS ORDERED: AMLO10TA4 PO (21:53)
[2018-10-30] MEDS ORDERED: RISP2 PO (21:53)
[2018-10-30] MEDS ORDERED: ATOR40TA70 PO (21:53)
[2018-10-30] MEDS ORDERED: LISI-186 PO (21:53)
[2018-10-30] MEDS ORDERED: DOCU-150 PO (21:53)
[2018-10-30] MEDS ORDERED: LOSA50TA20 PO (21:53)
[2018-10-30] MEDS ORDERED: FURO-152 PO (21:53)
[2018-10-30 22:00] VITALS: BP 138/65
[2018-10-30 22:26] LABS: CREATINE KINASE MB FRACTION 3.2 ng/mL (0.5-3.6); T4 FREE 1.13 ng/dL (0.76-1.46)
[2018-10-31] VITALS: BP 161/70
[2018-10-31 04:00] VITALS: BP 144/60
[2018-10-31 08:00] VITALS: BP 163/71
[2018-10-31] MEDS: METFORMIN HCL 500MG TABLET PO SCH ×2 (09:18→17:25)
[2018-10-31] MEDS: RISPERIDONE 1MG TABLET PO SCH ×2 (09:18→17:25)
[2018-10-31] MEDS: FUROSEMIDE 20MG TABLET PO SCH (09:18)
[2018-10-31] MEDS: AMLODIPINE 10MG TABLET PO SCH (09:18)
[2018-10-31] MEDS: LOSARTAN POTASSIUM 50 MG TABLET PO SCH (09:19)
[2018-10-31] MEDS: LISINOPRIL 5MG TABLET PO SCH (09:19)
[2018-10-31 09:56] LABS: CREATINE KINASE MB FRACTION 2.2 ng/mL (0.5-3.6)
[2018-10-31 12:00] VITALS: BP 154/61
[2018-10-31] MEDS: BLOOD SUGAR DIAGNOSTIC STRIP TEST SCH ×3 (12:10→21:31)
[2018-10-31] MEDS: INSULIN LISPRO 100 UNITS/ML SUBCUT SCH ×3 (14:05→21:00)
[2018-10-31 16:18] VITALS: BP 99/60
[2018-10-31 20:00] VITALS: BP 135/57
[2018-10-31] MEDS: ATORVASTATIN CALCIUM 40MG TABLET PO SCH ×2 (21:32→21:33)
[2018-11-01] VITALS: BP 106/58
[2018-11-01 03:56] VITALS: BP 152/61
[2018-11-01] MEDS: INSULIN LISPRO 100 UNITS/ML SUBCUT SCH ×4 (06:43→20:40)
[2018-11-01] MEDS: BLOOD SUGAR DIAGNOSTIC STRIP TEST SCH ×4 (06:44→20:40)
[2018-11-01] MEDS: DOCUSATE SODIUM 100MG CAPSULE PO PRN (06:45)
[2018-11-01] MEDS: LEVOFLOXACIN 500MG TABLET PO SCH (11:49)
[2018-11-01] MEDS: AMLODIPINE 10MG TABLET PO SCH (11:49)
[2018-11-01] MEDS: LISINOPRIL 5MG TABLET PO SCH (11:49)
[2018-11-01] MEDS: ASPIRIN 81MG TABLET PO SCH (11:49)
[2018-11-01] MEDS: METFORMIN HCL 500MG TABLET PO SCH ×2 (11:49→18:18)
[2018-11-01] MEDS: FUROSEMIDE 20MG TABLET PO SCH (11:50)
[2018-11-01] MEDS: LOSARTAN POTASSIUM 50 MG TABLET PO SCH (11:50)
[2018-11-01] MEDS: RISPERIDONE 1MG TABLET PO SCH ×2 (11:50→18:18)
[2018-11-01 16:00] VITALS: BP 122/60
[2018-11-01 20:00] VITALS: BP 125/64
[2018-11-01] MEDS: ATORVASTATIN CALCIUM 40MG TABLET PO SCH (20:40)
[2018-11-02] VITALS: BP 124/59
[2018-11-02 04:00] VITALS: BP 138/54
[2018-11-02] MEDS: BLOOD SUGAR DIAGNOSTIC STRIP TEST SCH ×2 (06:59→12:07)
[2018-11-02] MEDS: INSULIN LISPRO 100 UNITS/ML SUBCUT SCH ×2 (07:00→12:14)
[2018-11-02 08:00] VITALS: BP 129/61
[2018-11-02] MEDS: FUROSEMIDE 20MG TABLET PO SCH (10:18)
[2018-11-02] MEDS: LISINOPRIL 5MG TABLET PO SCH (10:18)
[2018-11-02] MEDS: LOSARTAN POTASSIUM 50 MG TABLET PO SCH (10:18)
[2018-11-02] MEDS: DOCUSATE SODIUM 100MG CAPSULE PO PRN (10:18)
[2018-11-02] MEDS: RISPERIDONE 1MG TABLET PO SCH (10:18)
[2018-11-02] MEDS: LEVOFLOXACIN 500MG TABLET PO SCH (10:18)
[2018-11-02] MEDS: METFORMIN HCL 500MG TABLET PO SCH (10:18)
[2018-11-02] MEDS: ASPIRIN 81MG TABLET PO SCH (10:19)
[2018-11-02] MEDS: AMLODIPINE 10MG TABLET PO SCH (10:19)
[2018-11-02] MEDS ORDERED: ENOXAPARIN 30MG/0.3ML SYR SUBCUT SCH (11:00)
[2018-11-02 12:00] VITALS: BP 141/70
[2018-11-02 14:12] VITALS: BP 141/90
== END 2018-11-02 15:17 | DRG 690 ==
LOC: ER 07:27 → 8WST 11:47 → ENRESERV 17:20 → 8WST 10-31 05:52
PROVIDERS: ADMIT Internal Medicine; ATTEND Internal Medicine
DX: N39.0 Urinary tract infection, site not specified (principal); F20.0 Paranoid schizophrenia; I50.32 Chronic diastolic (congestive) heart failure; I11.0 Hypertensive heart disease with heart failure; R26.9 Unspecified abnormalities of gait and mobility; E66.9 Obesity, unspecified; E11.9 Type 2 diabetes mellitus without complications; E78.5 Hyperlipidemia, unspecified; M17.0 Bilateral primary osteoarthritis of knee; M19.019 Primary osteoarthritis, unspecified shoulder; R29.6 Repeated falls; W06.XXXA Fall from bed, initial encounter; Z79.84 Long term (current) use of oral hypoglycemic drugs; Z79.899 Other long term (current) drug therapy; Z82.49 Family history of ischemic heart disease and other diseases of the circulatory system; Y93.89 Activity, other specified; Y92.122 Bedroom in nursing home as the place of occurrence of the external cause; Y99.8 Other external cause status; Z68.34 Body mass index [BMI] 34.0-34.9, adult; Z88.0 Allergy status to penicillin
CPT/HCPCS: 36415; 71045; 73030; 73560; 80061; 82550; 82553; 82962; 83036; 83880; 84439; 84443; 84484; 93005; 93306; 97116; 97162; 97166; 97530; 99285; J1650; J1815